=== PATIENT | male | born 1985 | race American Indian/Alaskan Native ===

== ENCOUNTER 2016-08-28 12:36 | Emergency (ER) | payer MEDICAID, OTHER ==
[~2016-08-28] VITALS: Ht 177.8 cm; Wt 81.6 kg
[2016-08-28] MEDS ORDERED: HYDR-3874 PO (12:58)
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
[2016-08-28] MEDS ORDERED: morphine INJ 10 MG/ML 1ML (SYR OR VIAL) IVP STA (13:43)
[2016-08-28] MEDS ORDERED: DIAZEPAM INJ 10 MG/2 ML (VALIUM) SYR IV STA ×2 (13:43→15:41)
--- NOTE | 2016-08-28 14:33 | Diagnostic Imaging Report ---
PROCEDURE: CT head and maxillofacial without contrast. TECHNIQUE: Multiple contiguous axial images were obtained through the head and facial bones without the use of intravenous contrast. INDICATION: Injury. FINDINGS: CT head: There is no intracranial hemorrhage, edema, or mass effect. The brain parenchyma and es[place]-white matter differentiation is preserved. There is no hydrocephalus. No extra-axial fluid collection is seen. The calvarium appears grossly unremarkable. CT face: There is anterior dislocation of the right temporomandibular joint. The left temporomandibular joint is in normal location. There is no fracture seen. There is mucosal thickening in the left maxillary sinus and in the ethmoidal air cells bilaterally. No sinus wall fracture is identified. No orbital wall fracture is identified. The globes and retrobulbar regions appear symmetric. The zygomatic arches are intact. The pterygoid plates appear intact. There is no large hematoma in the face identified. IMPRESSION: CT head: Unremarkable exam. CT face: Anterior dislocation of the right temporomandibular joint. No fracture seen. The findings were discussed with Rere Garcia, nurse practitioner in the ER. Dictated by: Dictated on workstation # [id number]
[2016-08-28] MEDS ORDERED: fentaNYL INJECTION 100 MCG/2 ML AMP IVP STA ×2 (14:35→15:41)
--- NOTE | 2016-08-28 15:36 | Diagnostic Imaging Report ---
INDICATION: Injury. Dislocation seen on CT scan at the right temporomandibular joint. FINDINGS: There is suggestion of dislocation of the right temporomandibular joint better seen on the recent CT scan. No fracture in the mandible or alveolar plate of the maxilla is seen. There are multiple missing teeth in the lower right mandibular alveolar plate seen. IMPRESSION: Suggestion of right temporomandibular joint dislocation, better seen on recent CT scan. Dictated by: Dictated on workstation # [id number]
[2016-08-28] MEDS ORDERED: LIDOCAINE 1% INJ 20 ML (XYLOCAINE) VIAL INJ STA (16:12)
[2016-08-28 16:33] VITALS: BP 178/125
== END 2016-08-28 16:33 | disposition home or self-care (01) ==
LOC: ER 12:40
DX: S03.01XA Dislocation of jaw, right side, initial encounter (principal); W17.89XA Other fall from one level to another, initial encounter; Y92.39 Other specified sports and athletic area as the place of occurrence of the external cause; W55.29XA Other contact with cow, initial encounter; Y99.8 Other external cause status
CPT/HCPCS: 64450; 70355; 70450; 70486; 96374; 96375; 96376